=== PATIENT | female | born 1975 | race Caucasian/White ===

== ENCOUNTER 2019-10-09 22:56 | Emergency (ER) | payer MEDICAID ==
[~2019-10-09] VITALS: Ht 165.1 cm; Wt 91.0 kg
[2019-10-09] MEDS ORDERED: ONDANSETRON HCL 4MG/2ML INJ IV STA (23:59)
[2019-10-09] MEDS ORDERED: SODIUM CHLORIDE 0.9% 1,000 ML IV ONE (23:59)
[2019-10-10] MEDS ORDERED: DEXAMETHASONE 10 MG/ML VIAL IV ONE
[2019-10-10] MEDS ORDERED: DIPHENHYDRAMINE 50MG/ML VIAL IV ONE
[2019-10-10 00:54] LABS: BASOPHILS % 0.5 % (0.0-2.0); EOSINOPHILS % 1.5 % (0.0-5.0); HEMATOCRIT. 39.9 % (36.0-48.0); LYMPHOCYTES % 14.4 % (20.0-50.0); MEAN CORPUSCULAR VOLUME 85.6 fL (81.0-99.0); MEAN PLATELET VOLUME 6.3 fl (7.4-10.4); MONOCYTES % 3.7 % (2.0-8.0); NEUTROPHILS % 79.9 % (40.0-76.0); PLATELET 393 x1000/uL (130-400); RED BLOOD CELL COUNT 4.66 mill/uL (4.2-5.4); RED CELL DISTRIBUTION WIDTH 13.8 % (11.6-14.6)
[2019-10-10 01:01] LABS: CHLORIDE 105 mEq/L (98-107)
[2019-10-10] MEDS ORDERED: IOHEXOL-300 100 ML BOTTLE ONE (03:30)
[2019-10-10 03:45] VITALS: BP 133/84
== END 2019-10-10 05:40 | disposition home or self-care (01) ==
LOC: ER 22:56
DX: R06.02 Shortness of breath (principal); J04.0 Acute laryngitis
CPT/HCPCS: 36415; 70491; 71045; 80053; 83605; 85025; 93005; 96374; 96375; 99284; J1100; J1200; J2405; J7030; Q9967; Z7610